=== PATIENT | female | born 1970 | race Caucasian/White ===

== ENCOUNTER 2018-06-07 04:52 | Emergency (ER) | payer OTHER ==
[2018-06-07] MEDS ORDERED: SODIUM CHLORIDE 0.9% (FLUSH) 10 ML SYG IV PRN (05:05)
[2018-06-07] MEDS ORDERED: SODIUM CHLORIDE 0.9% 1000ML 1,000 ML IVS ONE ×2 (05:41→08:47)
[2018-06-07] MEDS ORDERED: PEG-ELECTROLYTE 4,000 ML BTTL PO ONE (05:41)
[2018-06-07] MEDS ORDERED: diazePAM INJ 10 MG/2 ML SYG IV ONE (05:41)
[2018-06-07] MEDS ORDERED: HALOPERIDOL LACTATE INJ 5 MG/ML VIAL IM ONE (05:42)
--- NOTE | 2018-06-07 06:07 | ED.PDOC ---
History of Present Illness - General Source: patient Exam Limitations: no limitations - History of Present Illness Initial Comments: the patient is a 48-year-old female presenting to the emergency room and police custody after ingesting a baggy of methamphetamine when the police showed up yesterday around 3 PM. The patient apparently started exhibiting symptoms of a rupture of that bag in 2-3 hours ago according to her. she feels hot and tremulous. She is able to carry on a oversedation. No obvious hallucinations. She is obviously high. She is tachycardic. She is very mildly hypothermic. She denies ingestion of any other significant substance. Prior urine drug screen will not be functional until after 10 AM this morning. This is due to laboratory difficulties. She denies other significant past medical history. She is not having any abdominal pain. No headache. No vomiting. Timing/Duration: 1-3 hours Severity: moderate Improving Factors: nothing Worsening Factors: nothing Associated Symptoms: diaphoresis, fever/chills <Pancho Connor - Last Filed: 06/07/18 06:34> <Denton Vega - Last Filed: 06/07/18 11:17> - General Chief Complaint: Drug or Alcohol Abuse Stated Complaint: meth overdose Time Seen by Provider: 06/07/18 05:19 - History of Present Illness Allergies/Adverse Reactions: Allergies NO KNOWN ALLERGY Allergy (Verified 05/26/14 19:13) Review of Systems - Review of Systems Constitutional: States: no symptoms reported, diaphoresis EENTM: States: no symptoms reported Respiratory: States: no symptoms reported Cardiology: States: palpitations Gastrointestinal/Abdominal: States: no symptoms reported Genitourinary: States: no symptoms reported Musculoskeletal: States: no symptoms reported Skin: States: no symptoms reported Neurological: States: anxiety, tremors Endocrine: States: excessive sweating All other Systems: No Change from Baseline <Pancho Connor - Last Filed: 06/07/18 06:34> Past Medical History (General) - Patient Medical History Hx Seizures: Yes Hx Stroke: No Hx Dementia: No Hx Hypertension: Yes Hx Thyroid Disease: No Hx Diabetes: No Hx Renal Disease: No Surgical History: no surgical history - Vaccination History Hx Tetanus, Diphtheria Vaccination: No Hx Influenza Vaccination: No Hx Pneumococcal Vaccination: No - Social History Hx Tobacco Use: Yes Hx Alcohol Use: Yes Hx Substance Use: Yes Hx Substance Use Treatment: No Hx Depression: Yes - Female History Patient : No <Pancho Connor - Last Filed: 06/07/18 06:34> Family Medical History - Family History Mother Family History: Unknown <Pancho Connor - Last Filed: 06/07/18 06:34> Physical Exam - Physical Exam General Appearance: Alert, Other - the patient is diaphoretic with poor eye contact. She does answer questions appropriately. Eye Exam: bilateral normal Ears, Nose, Throat: hearing grossly normal, normal ENT inspection, normal pharyn x Neck: full range of motion, supple Respiratory: lungs clear, normal breath sounds, no respiratory distress, no accessory muscle use Cardiovascular/Chest: normal peripheral pulses, no edema, tachycardia - sinus tachycardia Peripheral Pulses: radial,right: 2+, radial,left: 2+, dorsalis pedis,right: 2+, dorsalis pedis,left: 2+ Gastrointestinal/Abdominal: non tender, soft Rectal Exam: deferred Back Exam: no CVA tenderness, no vertebral tenderness Extremity: non-tender, normal inspection, no pedal edema, no calf tenderness, normal capillary refill 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 She is tremulous and diaphoretic. Skin Exam: diaphoresis Comments: Vital Signs - 24 hr 06/07/18 05:09 Temperature 99.6 F Pulse Rate [ 122 H left] Respiratory 18 Rate Blood Pressure 166/95 [left] O2 Sat by Pulse 92 L Oximetry <Pancho Connor - Last Filed: 06/07/18 06:34> Progress - Progress Progress: 06/07/18 06:08 the patient is a 48-year-old female presenting to the emergency room secondary to symptoms of back rupture of the methamphetamine that she took. She reports approximately 5 g in the bag that she swallowed. poison control has been contacted who has recommended hydration with IV fluids, agitation and tremulousness control with benzodiazepines. Repeat temperature checks every hour and EKGs every 2 hours. Abdominal x-ray is currently being performed. Laboratory work is currently being performed. She will start taking some GoLYTELY to help wash out the bag and its contents. 06/07/18 06:10 the patient does have a mildly low potassium.after her saline bolus she can have this added to her continuous IV fluids. She can additionally have oral potassium after she is done with her GoLYTELY. - Results/Orders Results/Orders: 06/07/18 05:05 IV Care:Saline Lock per Protoc QSHIFT Telemetry Q4H ACETAMINOPHEN Stat CARDIAC ENZYME GROUP Stat COMPLETE METABOLIC PROFILE Stat ETHYL ALCOHOL (ETOH) Stat SALICYLATE Stat URINE DRUG SCREEN, 7 ASSAY Stat Sodium Chloride 0.9% (Flush) [Saline Flush Syringe] 10 ml IV PRN PRN URINALYSIS Stat 06/07/18 05:15 EKG STAT 06/07/18 05:41 Sodium Chloride 0.9% 1000ML [Ns 1000 ml] 1,000 ml IVS ONCE 06/07/18 05:43 Abdomen Series [RAD] Stat Laboratory Results - last 24 hr 06/07/18 06/07/18 06/07/18 05:05 05:05 05:05 WBC 10.8 RBC 3.87 L Hgb 11.6 L Hct 35.3 L MCV 91.3 MCH 29.9 MCHC 32.9 L RDW 14.6 H Plt Count 344 MPV 6.6 L Absolute Neuts (auto) 6.90 H Absolute Lymphs (auto) 3.00 Absolute Monos (auto) 0.80 Absolute Eos (auto) 0.10 Absolute Basos (auto) 0.00 Neutrophils % 63.7 Lymphocytes % 27.5 Monocytes % 7.4 Eosinophils % 1.0 Basophils % 0.4 PT 9.6 INR 0.96 PTT (SP) 22.8 Sodium 133 L Potassium 3.2 L Chloride 104 Carbon Dioxide 20 L Anion Gap 12.2 BUN 11 Creatinine 0.59 L BUN/Creatinine Ratio 18.6 Random Glucose 137 H Serum Osmolality 267.9 L Calcium 8.7 Total Bilirubin 0.6 AST 22 ALT 14 Alkaline Phosphatase 84 Creatine Kinase 126 CK-MB (CK-2) 2.1 Troponin I < 0.02 Serum Total Protein 7.1 Albumin 3.3 Globulin 3.8 H Albumin/Globulin Ratio 0.9 L Serum HCG, Qual Salicylates < 4.0 Acetaminophen < 10.0 L 06/07/18 05:05 WBC RBC Hgb Hct MCV MCH MCHC RDW Plt Count MPV Absolute Neuts (auto) Absolute Lymphs (auto) Absolute Monos (auto) Absolute Eos (auto) Absolute Basos (auto) Neutrophils % Lymphocytes % Monocytes % Eosinophils % Basophils % PT INR PTT (SP) Sodium Potassium Chloride Carbon Dioxide Anion Gap BUN Creatinine BUN/Creatinine Ratio Random Glucose Serum Osmolality Calcium Total Bilirubin AST ALT Alkaline Phosphatase Creatine Kinase CK-MB (CK-2) Troponin I Serum Total Protein Albumin Globulin Albumin/Globulin Ratio Serum HCG, Qual Negative Salicylates Acetaminophen <Pancho Connor - Last Filed: 06/07/18 06:34> - Progress Progress: 06/07/18 11:10 Patient was so agitated and already given Lorazepam -8 mg iv total ;then geodon 20mg -im and initially Haldol 5 mg im not lasting for an hour so decided to intubate patient for mechanical ventilation since giving more of sedating medication may put her to respiratory depression.Versed drip started and vencuronium was also given since she start to wake up again. <Denton Vega R - Last Filed: 06/07/18 11:17> Procedures - Intubation Time of Intubation: 11:15 Tube Size (cm): 7.5 Medications: Succinylcholine, Versed Breath Sounds after Intubation: equal Intubation Complications: no complications Post Intubation Xray: Yes <Denton Vega R - Last Filed: 06/07/18 11:17> Departure <Pancho Connor - Last Filed: 06/07/18 06:34> - Departure Time of Disposition: 11:17 <Denton Vega - Last Filed: 06/07/18 11:17> - Departure Clinical Impression: Methamphetamine intoxication Disposition: Transfer to Hospital Condition: Fair Departure Forms: ED Discharge - Pt. Copy, Patient Portal Self Enrollment Transfer to Outside Facility - Transfer Information Accepting Provider:: Doug/W Emigdio Sneed Md Accepting Facility: [facility] Reason for Transfer: ICU <Denton Vega R - Last Filed: 06/07/18 11:17> Addendum entered and electronically signed by Pancho Connor MD 06/07/18 06:34: Departure - Departure Clinical Impression: Methamphetamine intoxication Disposition: Discharge to Home or Self Care Departure Forms: ED Discharge - Pt. Copy, Patient Portal Self Enrollment Instructions: DI for Drug Overdose in Adults ED Addendum - ED Addendum Addendum: Temperature is coming down little bit. X-ray of the abdomen shows no evidence of any obstruction or foreign body.
--- NOTE | 2018-06-07 06:17 | RAD ---
EXAM DESCRIPTION: Abdomen Series CLINICAL HISTORY:48 years Female, ingested bag of methamphetamine Comparison: None FINDINGS: No focal lung consolidation. No pleural effusion. No pneumothorax. Cardiac and mediastinal silhouette is unremarkable. No acute osseous abnormality. Soft tissues are unremarkable. Nonobstructive bowel gas pattern. No radiopaque foreign body. No evidence of free air. IMPRESSION: No acute findings within the chest or abdomen. Electronically signed by: Iam Mccloud MD 06/07/2018 6:16 AM [facility]
--- NOTE | 2018-06-07 07:23 | RAD ---
CHEST 06/07/2018 CLINICAL HISTORY: NG tube placement. COMPARISON: Abdominal series 06/07/2018 TECHNIQUE: AP lower thorax and upper abdomen. FINDINGS: Feeding tube identified within the region of the gastric cardia. The cardiac size is normal. The mediastinal contours are normal. Imaged lungs are clear. Bowel gas pattern within the upper abdomen appears normal. No free air. IMPRESSION: 1. Feeding tube identified and can be advanced approximately 6 cm. Electronically signed by: Merlene Mitchell DO 06/07/2018 7:21 AM [facility]
--- NOTE | 2018-06-07 08:32 | RAD ---
EXAM DESCRIPTION: Chest,1 View CLINICAL HISTORY: 48 years Female, NG tube placement COMPARISON: November 05, 2018 at 7:12 AM. TECHNIQUE: AP radiograph of the chest was obtained. FINDINGS: Trachea is midline.The cardiomediastinal silhouette is normal in size. The pulmonary vasculature is within normal limits.The lungs are clear with no acute consolidation.No evidence of pleural effusions. Slight interval change in the position of the NG tube with the tip projecting over the gastric fundus region. IMPRESSION: 1. Slight interval advancement of the NG tube now the tip projecting over the gastric fundus region. 2. No acute cardiopulmonary process. Electronically signed by: Caden Blair MD 06/07/2018 8:31 AM [employer]
[2018-06-07] MEDS ORDERED: diphenhydrAMINE HCL 50 MG/ML VIAL IV ONE (09:01)
[2018-06-07] MEDS ORDERED: HALOPERIDOL LACTATE INJ 5 MG/ML VIAL IV ONE (09:01)
[2018-06-07] MEDS ORDERED: ZIPRASIDONE INJ 20 MG/ML VIAL IM ONE ×2 (09:21→09:33)
[2018-06-07] MEDS ORDERED: WATER FOR INJ 10 ML VIAL INJ ONE ×2 (09:22→10:59)
[2018-06-07] MEDS ORDERED: SUCCINYLCHOLINE CHLORIDE 200 MG/10 ML VIAL ONE (10:15)
[2018-06-07] MEDS ORDERED: MIDAZOLAM INJ 5 MG/5 ML VIAL ONE ×2 (10:49→10:53)
[2018-06-07] MEDS ORDERED: SODIUM CHLORIDE 0.9% 50ML 50 ML ONE (10:49)
[2018-06-07] MEDS ORDERED: SODIUM CHLORIDE 0.9% 100ML 100 ML IVPB ONE (10:56)
[2018-06-07] MEDS ORDERED: VECURONIUM BROMIDE 10 MG VIAL IV ONE (10:58)
[2018-06-07] MEDS ORDERED: MIDAZOLAM INJ 25 MG in SODIUM CHLORIDE 0.9% 50ML 25 ML IVPB SCH (11:00)
--- NOTE | 2018-06-07 11:04 | RAD ---
EXAM DESCRIPTION: Chest,1 View CLINICAL HISTORY: post intubation COMPARISON: 07 June 2018 time 822 TECHNIQUE: AP portable chest FINDINGS: An endotracheal tube is seen at the level of the thoracic inlet. Right basilar atelectatic type lung disease is observed. The heart is within range of normal. A nasogastric tube is seen to traverse the chest with the distal tip in the region of the body the stomach. IMPRESSION: 1. An endotracheal tube is seen at the level of the thoracic inlet. 2. Mild right basilar atelectasis is observed. Electronically signed by: Ryder Aguilar MD 06/07/2018 11:02 AM [facility]
[2018-06-07 12:25] VITALS: BP 134/97; TEMP 99; O2SAT 100
== END 2018-06-07 12:10 | disposition short-term general hospital (02) ==
LOC: ER 04:52
DX: F15.129 Other stimulant abuse with intoxication, unspecified (principal); R00.0 Tachycardia, unspecified; F32.9 Major depressive disorder, single episode, unspecified; I10 Essential (primary) hypertension; Z87.891 Personal history of nicotine dependence
CPT/HCPCS: 36415; 36600; 71045; 74019; 80053; 80307; 80320; 80329; 82550; 82553; 82803; 82805; 84484; 84703; 85025; 85610; 85730; 93005; 94002; 94770; A4216; J0330; J1200; J1630; J2060; J2250; J3486; J7030; J7050